=== PATIENT | female | born 1990 | race Caucasian/White ===

== ENCOUNTER 2016-12-16 19:48 | Inpatient (IN) | payer OTHER ==
[~2016-12-16] VITALS: Ht 162.6 cm; Wt 65.8 kg
[2016-12-16 21:00] VITALS: BP 147/96; PULSE 113; RESP 24; O2SAT 100
[2016-12-16] MEDS ORDERED: Senna-Docusate 8.6-50 mg Tablet PO PRN (21:10)
[2016-12-16] MEDS ORDERED: Acetaminophen IV 1,000 MG in IV Premix 1 EACH IV PRN (21:10)
[2016-12-16] MEDS ORDERED: Polyethylene Glycol (PEG) 17 Gm Powder PO PRN (21:10)
[2016-12-16] MEDS ORDERED: Alum-Mag Hydrox-Simeth 30 mL Suspension PO PRN (21:10)
[2016-12-16] MEDS ORDERED: Ondansetron 2 mg/mL 2 mL Inj IVPUSH PRN (21:10)
--- NOTE | 2016-12-16 21:21 | ABG ---
DateTimeAnalyzed 21:17:00 -_ pH ____7.369 - 7.350 7.450 pCO2 ___41.9__ -mmHg 35.0 45.0 pO2 231 -mmHg 69.0 116 HCO3- ___23.6__ -mmol/L 22.0 26.0 ABE ___-1.1__ -mmol/L -2.0 2.0 tHb ___11.6__ -g/dL O2Hb ___97.5__ -% COHb ____0.8__ -% MetHb ____1.2__ -% sO2 ___99.5__ -% FIO2 __100.0__ -% PEEP ____5.0__ -cmH2O Set_RR ___24.0__ -b/min Vt __480.0__ -L Drawn By AF - Date/Time Notified____ 21:20:00 -_ Spontaneous_RR ___24.0__ -b/min Oxygen Device 1 VENTILATOR - Notified By AF - B 761 -mmHg tO2 ___16.5__ -Vol% OrderingPhysicianInitials mf - Deric test _Positive -
--- NOTE | 2016-12-16 21:31 | PCM.HPMED ---
Subjective Date of Service December 16, 2016 Primary Provider: Admitting Physician: Fish Doe MD Primary Care Physician: Luis Attending Physician: Fish Doe MD Admit Status: Direct Admit (From [facility]), Full Admit, Critical Care Chief Complaint: Unresponsive History of Present Illness: Gabrielle Colunga is a 26 yo Heroine Addict with no medical problems who was intubated and transfer from [facility] after she was found unresponsive. She was found unresponsive in a vehicle by a friend. Friend reported finding a empty 1/5 of rum, pill cutter and a pipe in the car. Patient is reportedly depressed about the lose of custody of her baby to the state. She currently lives with he parents trying to get her life back together. She recently lost her job and her home. She is scheduled to go to rehab History of smoking heroine and alcohol problem. EMS reported finding patient with agonal breathing with pin point pupils. Respiratory rate was 4-6. EMS gave Narcan 2 mg intranasal with good response. Etomidate and succinylcholine also given then patient was intubated in the field. Also Versed and fentanyl iv given in ambulance enroute to hospital. Chest X ray showed ET tube in position and progression of right basilar infiltrates, possible aspiration test negative WBC 24.6 Hgb 13.1 plt 277 INR 0.9 Salicylate < 2.8 Acetaminophen < 2 Urine drug screen positive for benzodiazepine Na 146 K 3.5 BUN9 Cr 0.9 Glucose 180 Alcohol levels 168 AST 59 ALT [address] Harvey, [place] currently does not have ICU beds available. Review of Systems: Pertinent positives as noted in HPI. All other systems were reviewed and are negative Allergies Coded Allergies: No Known Allergies (Unverified , 12/16/16) Home Medications Data not available PMH Heroine abuse . Surgical History Unable to obtain Family History Unable to obtain Social History Hx Alcohol Use: Yes Hx Substance Use: Yes (smokes heroine) Smoking Status: Unknown if Ever Smoker Living Arrangement: with Family (recently moved to her parents house) Exam Vital Signs Vital Signs (First) Date Time Temp Pulse Resp B/P Pulse Ox O2 Delivery O2 Flow Rate FiO2 12/16/16 21:00 110 100 100 12/16/16 21:45 111/103 Exam General: Sedated on the ventilator Eyes: PERRLA, Scleral Anicteric Mouth: Mouth Normal, Mucous Membranes Moist/[place] Neck: Supple, no Thyromegaly, trachea central. Chest & Lungs: decreased breathe sounds at bases with crackles at right lung base Cardiovascular: Normal S1, Normal S2, No Murmurs/Rubs/Gallops, Regular Rate/ Rhythm, (No JVD, no peripheral edema) Pulses: Radial (present and equal), Dorsalis Pedi (present and equal) Abdomen: Soft, Non-tender, Non-distended, Normoactive bowel tones. Musculoskeletal: Right arm swelling (pitting) from hand up to just below shoulder, bruises noted on inner aspect of bicep area, elbow protruding due to tissue swelling Extremities: No edema, no cyanosis, no clubbing. Skin: No rashes. Warm and dry, no erythematous areas Neurological: Sedated on vent but moving all extremities Lymphatic: Lymph nodes Cervical and Axillary not palpable. Lab and Diagnostics Labs Laboratory Tests Test 12/16/16 21:25 White Blood Count 14.0th/mm3 (3.8-10.1) Red Blood Count 3.82mil/mm3 (3.90-5.20) Hemoglobin 11.5g/dL (12.0-15.6) Hematocrit 35.2% (35.0-46.0) Mean Corpuscular Volume 92.1fL (81-100) Mean Corpuscular Hemoglobin 30.1pg (27.0-35.0) Mean Corpuscular Hemoglobin Concent 32.7% (32.0-37.0) Red Cell Distribution Width 12.7% (12.3-15.4) Platelet Count 172bil/L (150-400) Neutrophils (%) (Auto) 86.5% (40-74) Lymphocytes (%) (Auto) 9.9% (14-46) Monocytes (%) (Auto) 2.6% (4-12) Eosinophils (%) (Auto) 0.6% (0-5) Basophils (%) (Auto) 0.2% (0-3) Sodium Level 142mEq/L (134-144) Potassium Level 4.5mEq/L (3.5-5.2) Chloride Level 105mEq/L (97-108) Carbon Dioxide Level 25mmol/L (18-29) Blood Urea Nitrogen 8mg/dL (6-20) Creatinine 0.59mg/dL (0.57-1.00) Estimat Glomerular Filtration Rate 175mL/min (>59) Glucose Level 96mg/dL (60-99) Calcium Level 7.6mg/dL (8.5-10.1) Magnesium Level 1.5mg/dL (1.6-2.6) Total Bilirubin 0.6mg/dL (0.0-1.2) Aspartate Amino Transf (AST/SGOT) 49U/L (0-50) Alanine Aminotransferase (ALT/SGPT) 32U/L (0-32) Alkaline Phosphatase 53U/L (25-150) Total Protein 5.6g/dL (6.4-8.4) Albumin 3.5g/dL (3.4-5.0) Hold Mcclain Top Tube Received (Received) Assessment & Plan Gabrielle Colunga is a 26 yo Heroine Addict with no medical problems who was intubated and transfer from [facility] after she was found unresponsive. 1. Acute Encephalopathy secondary to Overdose. Present on admission Strong evidence of Heroine Overdose with Alcohol toxicity as well based on the history reported. 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 Acute Respiratory Failure. Present on admission Due to inability to maintain airways due to Overdose. Patient has no prior Pulmonary problems - maintain on Ventilator overnight, follow ABG and change vent setting accordingly - Propofol and Fentanyl protocol for ventilation sedation - daily sedation vacation and extubation trials 3. Aspiration pneumonitis. Present on admission Likely the patient aspirated when she was unresponsive and Chest X ray confirm the presence of infiltrates - monitor with NG tube in place - initiate antibiotics if fever develops, this confirms pneumonia - patient seems to smoke heroine and may cause some lung injury 4. Right arm swelling due to possible compartment syndrome. Present on admission This finding was reported later by the nurse. Swelling seems to involve the hands up to just below the right shoulder - Dr Echeverria from Orthopedic consulted - X ray to rule out any fractures - Engle device for pressure monitoring Alcohol intoxication. Present on admission Suspect patient does not take alcohol on a daily basis - monitor for signs of withdrawal when extubated 5. Acute Leukocytosis. Present on admission Likely due to stress demargination. Possible early signs of infection - not meeting SIRS or Sepsis criteria. - Acetaminophen as needed for mild pain/fever/headache - Bowel regimen as needed - Antiemetic as needed Patient admitted under inpatient status with expected length of stay > 2 midnights for severity of present symptoms, complexities of treatment plan and risk for adverse event . VTE Prophylaxis: Sub-Q Heparin (Unfractionated) Resuscitation Status: CPR: Attempt Resuscitation Time spent 1 hour critical care time spend Fish Doe MD December 16, 2016 21:31
[2016-12-16 21:35] LABS: BASOPHILS % (AUTO) 0.2 % (0-3); EOSINOPHILS % (AUTO) 0.6 % (0-5); MONOCYTES % (AUTO) 2.6 % (4-12); Mean Corpuscular Hemoglobin 30.1 pg (27.0-35.0); Mean Corpuscular Volume 92.1 fL (81-100); NEUTROPHILS % (AUTO) 86.5 % (40-74); Platelet Count 172 bil/L (150-400)
[2016-12-16 21:45] VITALS: BP 111/103; O2SAT 96
[2016-12-16 21:57] LABS: Magnesium 1.5 mg/dL (1.6-2.6)
[2016-12-16] MEDS: 0.9% Sodium Chloride 1,000 ML IV SCH (22:01)
[2016-12-16] MEDS: fentaNYL 2,500 mCg/250 mL 2,500 MCG in IV Premix 1 EACH IV PRN (22:02)
[2016-12-16] MEDS: Propofol Inj 1,000,000 MCG in IV Premix 1 EACH IV SCH (22:06)
[2016-12-16] MEDS ORDERED: FLUO10CA20 PO (22:45)
[2016-12-16] MEDS ORDERED: suboxone (22:45)
[2016-12-16] MEDS ORDERED: LORazepam Inj 100 MG in 0.9% Sodium Chloride 50 ML IV PRN (23:25)
[2016-12-17] VITALS (13 sets, daily range): BP systolic 101–164; BP diastolic 56–94; PULSE 86–126; RESP 16–24; O2SAT 95–100
[2016-12-17] MEDS: Heparin 5,000 Unit/mL Inj SUBQ SCH ×4 (00:01→23:38)
[2016-12-17] MEDS: Chlorhexidine 0.12% 15 mL Oral Solution MT SCH ×7 (00:01→23:38)
[2016-12-17] MEDS ORDERED: Piperacillin-Tazo 3.375 Gm Inj 3.375 GM in Dextrose 5% Minibag Plus 50 ML IV ONE (00:20)
[2016-12-17 01:13] LABS: APPEARANCE,URINE CLEAR (CLEAR,HAZY); COLOR,URINE STRAW (YELLOW); OCCULT BLOOD,URINE TRACE (NEGATIVE); PH,URINE 5.5 (5.0-8.0); UROBILINOGEN,URINE NORMAL (NORMAL)
--- NOTE | 2016-12-17 02:23 | PCM.CONORT ---
Subjective Surgeon Admitting Provider:Fish Doe MD Attending Provider:Fish Doe MD Primary Care Physician:Nopmary Other Provider: Reason for Consultation: rule out compartment syndrome right forearm Allergy Allergies: Coded Allergies: No Known Allergies (Unverified , 12/16/16) Medications ([suboxone]) (Reported) Last Taken: UNKNOWN on Unknown Date & Time Fluoxetine (Fluoxetine) 10 Mg Capsule 10 MG PO DAILY (Reported) Last Taken: UNKNOWN on Unknown Date & Time History History of ENT Problems?: No HEENT History: Denies:: Abnormal Airway Cataracts Difficult Intubation Dysphagia Glaucoma Hearing Problem Sinus Problem TMJ Denture Type: None Teeth Condition: Within Normal Limits Hx of Heart Problems?: No Cardiovascular History: Denies:: AICD Abdominal Aortic Aneurism Atrial Fibrillation Cardiac Surgery Chest Pain Congestive Heart Failure Coronary Artery Disease Edema Heart Murmur Hypertension Irregular Heartbeat Pacemaker Peripheral Vascular Rheumatic Fever Thrombophlebitis Valvular Heart Disease Hx of Respiratory Problem?: No Respiratory History: Denies:: Asthma COPD Chest Surgery Cough Dyspnea Emphysema Hemoptysis Oxygen Administration Pneumonia Pulmonary Embolism Tuberculosis Use of C-PAP Machine Use of Inhalers / NEBS Hx Neurologic Problems?: No Neurological History: Denies:: Alzheimer's Disease CVA Dementia Dizziness Headaches Multiple Sclerosis Parkinson's Disease Peripheral Neuropathy Seizures TIA Hx of GI Problems?: No Gastrointestinal History: Denies:: Cirrhosis Diverticulitis Gall Bladder Disease Gastroesphageal Reflux Gastrointestinal Bleeding Heartburn Hepatitis Hiatal Hernia Liver Disease Rectal Bleeding Hx of Problems?: Yes Genitourinary History: Denies:: HX of Hemodialysis Kidney Stones Urinary Tract Infection HX of Peritoneal Dialysis: No Other Pertinent History: 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 Pressure Ulcers Hx Musculoskeletal Problems?: No Other History/Comment Gabrielle Aragon is a 26-year-old unknown hand dominant patient who presents to the hospital with a history of heroin addiction and was transferred from [facility] after she was found unresponsive in her vehicle with a pill cutter, bottle of rum and a pipe in her car. The patient was transferred intubated and unresponsive is unable to describe their pain or symptoms. This has been progressing over the past today after since earlier yesterday on 2016. The nurse reported that her forearm was swollen and an x-ray of her elbow was performed which showed no fracture. She is unable to report any issues with numbness, tingling, or weakness to the affected distal upper extremity. It is unknown whether the patient denies any fever, chills, nausea, vomiting, chest pain, shortness of breath, or calf tenderness. Work/hobbies/ sports include: Reportedly she was depressed and about to lose custody of her baby to this state. She recently lost her job and home and lives with her parents and was scheduled to go to rehabilitation Psycho Social History: Denies:: Anxiety Bipolar Disorder Hx Depression Suicide Attempt Hx Surgeries?: No Other History: Denies:: Cancer Endocrine Disease Hospitalization Thyroid Disease History Blood Transfusions: Positive for:: Accept Blood Products? Denies:: Blood Transfuse Reaction Blood Transfusions Hx Alcohol Use: YesHx Substance Use: Yes (smokes heroine) Smoking Status: Unknown if Ever Smoker Have You Smoked inLast 12 mo: YesApprox How Many Cigarettes/day: started 2 days ago per Mom Objective Exam Vital Signs & I/O Vital Sign- Last 8 Hours Date Time Temp Pulse Resp B/P Pulse Ox O2 Delivery O2 Flow Rate FiO2 12/17/16 00:20 124 164/92 100 50 12/16/16 21:45 108 111/103 96 50 12/16/16 21:00 110 100 100 12/16/16 21:00 37.2 113 24 147/96 100 Mechanical Ventilator 100 Lab & Micro Results Laboratory Tests Test 12/16/16 21:25 12/17/16 00:40 White Blood Count 14.0th/mm3 (3.8-10.1) Red Blood Count 3.82mil/mm3 (3.90-5.20) Hemoglobin 11.5g/dL (12.0-15.6) Hematocrit 35.2% (35.0-46.0) Mean Corpuscular Volume 92.1fL (81-100) Mean Corpuscular Hemoglobin 30.1pg (27.0-35.0) Mean Corpuscular Hemoglobin Concent 32.7% (32.0-37.0) Red Cell Distribution Width 12.7% (12.3-15.4) Platelet Count 172bil/L (150-400) Neutrophils (%) (Auto) 86.5% (40-74) Lymphocytes (%) (Auto) 9.9% (14-46) Monocytes (%) (Auto) 2.6% (4-12) Eosinophils (%) (Auto) 0.6% (0-5) Basophils (%) (Auto) 0.2% (0-3) Sodium Level 142mEq/L (134-144) Potassium Level 4.5mEq/L (3.5-5.2) Chloride Level 105mEq/L (97-108) Carbon Dioxide Level 25mmol/L (18-29) Blood Urea Nitrogen 8mg/dL (6-20) Creatinine 0.59mg/dL (0.57-1.00) Estimat Glomerular Filtration Rate 175mL/min (>59) Glucose Level 96mg/dL (60-99) Calcium Level 7.6mg/dL (8.5-10.1) Magnesium Level 1.5mg/dL (1.6-2.6) Total Bilirubin 0.6mg/dL (0.0-1.2) Aspartate Amino Transf (AST/SGOT) 49U/L (0-50) Alanine Aminotransferase (ALT/SGPT) 32U/L (0-32) Alkaline Phosphatase 53U/L (25-150) Total Protein 5.6g/dL (6.4-8.4) Albumin 3.5g/dL (3.4-5.0) Procalcitonin 0.16ng/mL (0.00-0.08) Hold Mcclain Top Tube Received (Received) Urine Color Straw (YELLOW) Urine Appearance Clear (CLEAR,HAZY) Urine pH 5.5 (5.0-8.0) Urine Specific [place] 1.020 (1.003-1.035) Urine Protein Negativemg/dL (NEG,TRACE) Urine Glucose (UA) Negativemg/dL (NEGATIVE) Urine Ketones 15mg/dL (NEGATIVE) Urine Occult Blood Trace (NEGATIVE) Urine Nitrite Negative (NEGATIVE) Urine Bilirubin Negative (NEGATIVE) Urine Urobilinogen Normalmg/dL (NORMAL) Urine Leukocyte Esterase Negative (NEGATIVE) Urine RBC 0-2/hpf (0-2) Urine WBC 0-5/hpf (0-5) Urine Epithelial Cells Occasional/hpf (NONE-MOD) Urine Crystals None seen (NONE SEEN) Urine Bacteria None/hpf (NONE-FEW) Urine Hyaline Casts None/lpf (NONE) Urine Granular Casts None seen (NONE SEEN) Urine Waxy Casts None seen (NONE SEEN) Urine Red Blood Cell Casts None seen (NONE SEEN) Urine White Blood Cell Casts None seen (NONE SEEN) Urine Mucus None seen (None Seen) Urine Trichomonas None seen (NONE SEEN) Urine Yeast None (NONE SEEN) Urine Culture Reflexed Not indicated Result Diagram: 12/16/16212412/16/162124 Review of Systems: Constitutional: Negative, except as otherwise mentioned in the history above. Ophthalmologic: Negative, except as otherwise mentioned in the history above. Cardiovascular: Negative, except as otherwise mentioned in the history above. Respiratory: Negative, except as otherwise mentioned in the history above. Gastrointestinal: Negative, except as otherwise mentioned in the history above. Genitourinary: Negative, except as otherwise mentioned in the history above. Musculoskeletal: Negative, except as otherwise mentioned in the history above. Neurological: Negative, except as otherwise mentioned in the history above. Psychiatric: Negative, except as otherwise mentioned in the history above. Hematologic/Lymphatic: Negative, except as otherwise mentioned in the history above. Allergic/Immunologic: Negative, except as otherwise mentioned in the history above. H&P Surgical Exam Exam Musculoskeletal: CONST: Intubated and sedated OCULAR: no conjunctivitis/icterus ENT: no deformities, scars or lesions CARDIAC: Pulse is regular. No cyanosis,clubbing RESP: regular,unlabored MSK: Unable to assess light touch to median, ulnar, radial, lateral antebrachial , axillary nerve distribution. Unable to assess AIN, PIN, u, r, ax motor. Unable to assess if C5-T1 intact, 2+ r pulse palpable bilaterally Right forearm - scars, -discoloration/temp, + swelling, compartment soft - atrophy or asymmetry, - cascade sign, no global ligamentous laxity, ROM right Ext-flex Resisted Strength/Pain Full elbow and wrist passive range of motion Additional Information Two-view x-rays of the right elbow demonstrate no acute fracture or dislocation , radiopaque substance noted likely IV H&P Preop Plan Impression Right forearm swelling, rule out compartment syndrome Problems: Risks & Benefits * We have reviewed the risks and benefits as well as the alternatives to surgery. All questions were answered to the patient's satisfaction and a counseling note to that effect. The patient has provided informed consent. * I have counseled the patient regarding the deleterious effects that smoking during the perioperative period can have upon wound healing, infection rates, and the overall rate of complications. Plan Nonweightbearing right upper extremity Recommend serial neurovascular exams every 4-6 hours Recommend extubation and immediate examination when medically indicated Recommend PRAFO to prevent heel ulcers and Achilles equinus contracture The right upper extremity was prepped with alcohol and iodine and the TwtBks compartment pressure device was used to assess multiple compartments of the right forearm including the: mobile wad:25mmHg dorsal compartment: 18 mmHg volar compartment: 20 mmHg thenar compartment 15 mmHg hyperthenar compartment 12 mmHg adductor pollicis compartment 12 mmHg, carpal tunnel compartment: 12 mmHg dorsal compartment: 11 mmHg Please keep extremity elevated Continue medical management per primary Please call with questions Norbert Echeverria MD December 17, 2016 02:23
[2016-12-17] MEDS: 0.9% Sodium Chloride 1,000 ML IV SCH (06:41)
[2016-12-17] MEDS: Propofol Inj 1,000,000 MCG in IV Premix 1 EACH IV SCH ×5 (06:42→23:39)
--- NOTE | 2016-12-17 07:35 | DRSVH ---
PROCEDURE: X-RAY RIGHT ELBOW, TWO VIEWS ([id number]) INDICATIONS: SWELLING TECHNIQUE: 3 views of the elbow were acquired. COMPARISON: None. FINDINGS: Bones: No fractures or dislocations. No suspicious bony lesions. Soft tissues: No elbow joint effusion. No suspicious soft tissue calcifications. IMPRESSION: No acute fracture. No osseous lesion. If clinical suspicion and/or symptoms persist, fur ther assessment with repeat plainfilms, or advanced imaging (e.g., CT, MRI, or bone scan) may be help ful for further assessment. Dictated by: Negar Polk M.D. on 12/17/2016 at 7:33 Approved by: Negar Polk M.D. on 12/17/2016 at 7:33
--- NOTE | 2016-12-17 07:37 | DRSVH ---
PROCEDURE: X-RAY CHEST ONE VIEW, PORTABLE ([id number]) INDICATIONS: vent patient TECHNIQUE: One view of the chest was acquired. COMPARISON: None. FINDINGS: Surgical changes and devices: NGT is present, which is looped within the gastric lumen. ETT is presen t, tip of which is 4 cm above the [place]isa. Lungs and pleura: No pleural effusions or pneumothorax. Moderate airspace opacity at the right lung base. Mediastinum: Mediastinal contours appear normal. Heart size is normal. Bones and chest wall: No suspicious bony lesions. Overlying soft tissues appear unremarkable. IMPRESSION: Right lung base pneumonia. Dictated by: Negar Polk M.D. on 12/17/2016 at 7:35 Approved by: Negar Polk M.D. on 12/17/2016 at 7:35
[2016-12-17] MEDS: Piperacillin-Tazo 3.375 Gm Inj 3.375 GM in Dextrose 5% Minibag Plus 50 ML IV SCH ×3 (08:20→23:38)
[2016-12-17] MEDS ORDERED: Magnesium Sulf 4 Gm/100 mL H2O 4 GM in IV Premix 1 EACH IV ONE (08:30)
[2016-12-17] MEDS ORDERED: D5 0.45% NaCl + KCl 20 mEq/L 1,000 ML IV SCH (12:35)
[2016-12-17] MEDS ORDERED: 0.9% Sodium Chloride 1,000 ML IV SCH (13:50)
[2016-12-17] MEDS: Dextrose 5% 0.9% NaCl 1,000 ML IV SCH (14:30)
--- NOTE | 2016-12-17 14:56 | CONS ---
[address] [address] CONSULTATION REPORT PATIENT: DEV LEE : 1990 MR#: [id number] ADMIT: 12/16/2016 JOB ID: [id number] DATE OF SERVICE: 12/17/2016 REQUESTING PHYSICIAN: Dr. Gipson. REASON FOR CONSULTATION: Ostensible heroin overdose with ventilatory failure. HISTORY OF PRESENT ILLNESS: The patient is a 26-year-old heroin addict, who was found unresponsive in a vehicle by a friend. There was an empty bottle of rum, a pill cutter, and a pipe in the car. Patient apparently depressed about loss of custody of her baby to the State. Does have a history of smoking heroin as well as alcohol use. EMS reports finding the patient with agonal breathing. Pinpoint pupils. Respiratory rate 4-6. Good response to Narcan 2 mg intranasally. Subsequently, intubated in the field with etomidate and succinylcholine. Given Versed and fentanyl IV in the ambulance en route. No other history available. REVIEW OF SYSTEMS: Mother states the patient has no other medical problems other than her drug abuse. Unable to obtain review of systems, allergies, and home medications. Apparently does not take any medications or have any allergies. OBJECTIVE: Temperature 36.6 with T-max being 39.4, pulse 88, respiratory rate 16, set at 16. Blood pressure 128/88. O2 sat on FiO2 40%, PEEP of 5 is 100%. General appearance: Sedated on the ventilator. Following the ventilator. Pupils about 2 mm. Nose and throat could not be examined. Chest is clear with good breath sounds bilaterally. Heart: Regular rhythm. Heart tones normal. Abdomen soft. Quiet. Extremities: No pretibial edema. Has a tattoo on her right forearm. Apparently, it has been there for years. Right arm seems somewhat swollen and warm. Evaluation for compartment syndrome was negative. Chest x-ray shows a right lower lobe infiltrate. LABORATORY: Shows a white count of 14,000, with 86 polymorphonuclears, 9 lymphs, 2 monos. Hemoglobin 11.5. Platelet count 172,000. Sodium 142, potassium 4.5, chloride 105, CO2 is 25, BUN 8, creatinine 0.59, glucose 96. Calcium 7.6, magnesium 1.5, repleted with 4 grams of magnesium sulfate intravenously. Total bilirubin 0.6, AST 49, ALT 32, alk phos 53, total protein 5.6, albumin 3.5. Procalcitonin somewhat elevated at 0.16. ASSESSMENT: 1. Overdose. Apparently overdosed on heroin and alcohol. She currently is sedated on a ventilator. Doing reasonably well. Arterial blood gases on tidal volume of 420, rate of 16, FiO2 of 40%, PEEP of 5, shows a pO2 231, pCO2 of 41, pH 7.37. Those gases were done on FiO2 of 100%. That currently has been decreased to 40%. Repeat gases on FiO2 of 50%, rate of 24, tidal volume of 420, shows a pO2 of 754, CO2 29, pO2 of 76. The rate was subsequently decreased to 16. O2 saturation continued to increase and therefore her FiO2 was decreased to 0.4 with sats running at 100%. 2. Aspiration pneumonia. On appropriate antibiotics. 3. Overdose. With chronic use of alcohol, I think thiamine should be added to her regimen. In addition, fluids might be changed from D5 half-normal with K to normal saline to avoid any problem with hyponatremia. Will add D5 to the normal saline as she has been hypoglycemic on one check with a sugar of 67 recently (an hour and half ago). Repeat check was 111 glucose. 4. Swollen right arm. Has been evaluated for compartment syndrome. May consider ultrasound or possibly even CT scan to make sure there is no evidence of DVT or soft tissue infection. Family states that the tattoo is quite old and I do not think that has much to do with the situation. PLAN: 1. Discontinue D5 half-normal plus potassium. 2. IV fluids consist of D5 normal saline at 70 an hour. 3. Thiamine IV 200 mg daily x3 days. 4. Consider ultrasound or possibly even CT of the right upper extremity. Will check with the primary team about this. Thank you so much, Dr. Gipson, for asking me to see this most unfortunate individual. Will follow her respiratory status closely along with you. Time spent in critical care 30 minutes.
[2016-12-17] MEDS: Thiamine Inj 200 MG in Dextrose 5% 50 ML IV SCH (15:15)
--- NOTE | 2016-12-17 17:52 | DRSVH ---
PROCEDURE: US VENOUS ARM DUPLEX UNILATERAL, RIGHT INDICATIONS: RUE swelling TECHNIQUE: Real-time imaging, as well as color and pulse Doppler interrogation, was performed of the right upper extremity deep veins from the inferior neck to the antecubital fossa. COMPARISON: None. FINDINGS: The internal jugular vein, visualized portions of the subclavian vein, axillary, and brach ial veins are free of intraluminal thrombus. Where physically possible, the veins are normally compr essible. Color and pulse Doppler demonstrate normal intraluminal flow, with expected phasicity and p ulsatility. Additional scanning of the cephalic and basilic veins of the superficial system demonstr ate normal compressibility, without thrombus. IMPRESSION: No evidence of right upper extremity DVT. Dictated by: Negar Polk M.D. on 12/17/2016 at 17:50 Approved by: Negar Polk M.D. on 12/17/2016 at 17:51
--- NOTE | 2016-12-17 19:23 | PCM.PNMED ---
Subjective Date of Service December 17, 2016 Subjective The patient is sedated on the ventilator. She appears quite comfortable and in no distress. Exam Vital Signs Vital Sign - Last Date Time Temp Pulse Resp B/P Pulse Ox O2 Delivery O2 Flow Rate FiO2 12/17/16 17:50 88 119/76 99 40 12/17/16 15:30 Ventilator 12/17/16 15:30 37.0 16 Intake and Output 12/16/16 12/16/16 12/17/16 Cumulative From/Thru 15:00 23:00 07:00 12/16/16 21:00 - 12/17/16 06:10 Intake Total 1330 ml 1330 ml Output Total 1150 ml 1150 ml Balance 180 ml 180 ml Intake IV Total 1330 ml 1330 ml Output Urine Total 1000 ml 1000 ml Gastric Drainage Total 150 ml 150 ml Exam General: The patient is sedated on the ventilator and in no distress. She appears comfortable. HEENT: Head is atraumatic and normocephalic. Eyes: Pupils are pinpoint. Extraocular muscles are unable to be tested. Sclera are white, anicteric. Subconjunctival mucosa is pink. Ears and nose are unremarkable. Oropharynx: There is an endotracheal tube in place. There are no mucosal lesions visible, there is no thrush visible, there is no pharyngitis visible. Neck: Is supple, there are no nodes, or masses or tenderness. Chest: Is significant for rales at the right base. The lungs are otherwise clear with no wheezes, rhonchi or rubs. Heart: Rate, rhythm is regular. There is no appreciable murmur, rub or gallop. Abdomen: Good bowel sounds are present. Abdomen is soft, nontender, no organomegaly or masses were appreciated. There is some tympany to percussion. Extremities: There is some edema of the right upper extremity, greater than the left upper extremity. There is no evidence of cellulitis. There is no significant ecchymosis. Neurologic: Patient is sedated on a ventilator and full neurological exam could not be performed. Psychiatric: Patients is sedated and shows no sign of agitation. Genital: Deferred Rectal: Deferred Lab and Diagnostics Result Diagram: 12/16/16212412/16/162124 Microbiology Name: GABRIELLE LEE Age/Sex: 26/F Attend Dr: Fish Doe MD Acct: [id number] Unit: [id number] Status: ADM IN Location: [facility] [id number] Re12/16/16 Disch: Specimen: [id number] Collected: 12/17/16 Status: RES Req#: [id number] Received: 12/17/16 Source: NOSE Sp Desc : Subm Dr: Fish Doe MD Ordered: ISABEL MRSA PCR Comments: Collected by Nurse/Unit? Y/N Y Comment: Use both nares with one swab Procedure Result Verified Site Microbiology ISABEL MRSA PCR Preliminary 05/07/17-0836 MRSA BY PCR POSITIVE REFERENCE INTERVAL NEGATIVE Organism 1 PRESUMPTIVE MRSA PCR Blood Cultures are pending. Sputum cultures are pending. Additional Diagnostics The right upper extremity was prepped with alcohol and iodine and the Piece of Cake compartment pressure device was used to assess multiple compartments of the right forearm including the: mobile wad:25mmHg dorsal compartment: 18 mmHg volar compartment: 20 mmHg thenar compartment 15 mmHg hyperthenar compartment 12 mmHg adductor pollicis compartment 12 mmHg, carpal tunnel compartment: 12 mmHg dorsal compartment: 11 mmHg Assessment & Plan Gabrielle Colunga is a 26 yo Heroine Addict with no medical problems who was intubated and transfer from [facility] after she was found unresponsive. 1. Acute Encephalopathy secondary to Overdose. Present on admission Strong evidence of Heroine Overdose with Alcohol toxicity as well based on the history reported. 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 Acute Respiratory Failure. Present on admission Due to inability to maintain airways due to Overdose. Patient has no prior Pulmonary problems - We will continue to maintain on Ventilator overnight, follow ABG and change vent setting accordingly. Dr. Dominic Kenyon and was consulted for ventilator management. - We will continue Propofol and Fentanyl protocol for ventilation sedation - We will continue daily sedation vacation and extubation trials 3. Aspiration pneumonitis. Present on admission Likely the patient aspirated when she was unresponsive and Chest X ray confirm the presence of infiltrates - We will monitor with NG tube in place - Zosyn was started in the emergency room and will continue. Due to the preliminary result on the MRSA screen, and evidence of aspiration pneumonitis, we will add vancomycin per pharmacy - The patient has a history of smoking heroine and this may have caused some lung injury. 4. Right arm swelling. Present on admission. This is active and persistent. - Swelling seems to involve the hands up to just below the right shoulder. I suspect this may be due to deep venous thrombosis or dependent edema from lying unconscious with possible poor venous circulation - Dr Echeverria from Orthopedic consulted and has found no evidence of compartment syndrome. Appreciate his consultation and input. - X ray did not reveal any fractures 5. Alcohol intoxication. Present on admission Suspect patient does not take alcohol on a daily basis - monitor for signs of withdrawal when extubated 6. Acute Leukocytosis. Present on admission Likely due to aspiration pneumonia - Acetaminophen as needed for mild pain/fever/headache - Bowel regimen as needed - Antiemetic as needed Disposition: Patient likely to be here several more days for evaluation and treatment of the above conditions. Dr. Dominic Kenyon and of the pulmonary service was consulted for ventilator management. Appreciate his input and expertise. . Pain Evaluation: Adequate Pain Control GI Prophylaxis: H2 chinyere VTE Prophylaxis: Sub-Q Heparin (Unfractionated) VTE Mechanical Devices: Intermittant Pneumatic CD Resuscitation Status: CPR: Attempt Resuscitation Time spent Time spent in the care of this critically ill patient was over 60 minutes, over half of which was involved in counseling" of care. Norbert Gipson MD December 17, 2016 19:23
[2016-12-17] MEDS ORDERED: Vancomycin Inj 1,250 MG in 0.9% Sodium Chloride 250 ML IV ONE (19:30)
[2016-12-17] MEDS: Vancomycin Dose per Pharmacist XX SCH (19:56)
[2016-12-17] MEDS: Famotidine Inj 20 MG in IV Premix 1 EACH IV SCH (19:56)
--- NOTE | 2016-12-17 21:17 | PCM.CONPHA ---
Subjective Date of Service: December 17, 2016 Vancomycin dosing Reason for Pharmacy Consult: Vancomycin Dosing Assessment/Plan Assessment/Plan Patient is a 26 y.o. female receiving vancomycin for aspiration pneumonia. Concurrent abx include: zosyn. WBC count is 14 and the patient is febrile. Patient is 63kg, 64 inches tall with a SCr of 0.59 mg/dL-- estimated CrCl of > 90 mL/min. Based on patient parameters vancomycin will be loaded with 1250mg and then dosed at 1000 mg q8h with a target trough of 15-20 mcg/mL. Trough will be drawn prior to the 4th dose on 12/18 @ 1930. Pharmacy will follow daily and adjust as appropriate. Thank you for the consult in the care of this patient. RWP Msasimo Barajas December 17, 2016 21:17
[2016-12-17] MEDS ORDERED: Acetaminophen 32.5 mg/mL 20 mL Liquid NGTUBE ONE (21:30)
[2016-12-17] MEDS: fentaNYL 2,500 mCg/250 mL 2,500 MCG in IV Premix 1 EACH IV PRN (22:00)
[2016-12-18] VITALS (9 sets, daily range): BP systolic 110–144; BP diastolic 58–97; PULSE 84–101; RESP 0–31; O2SAT 94–100
[2016-12-18] MEDS: Dextrose 5% 0.9% NaCl 1,000 ML IV SCH ×4 (00:49→22:00)
[2016-12-18] MEDS: Chlorhexidine 0.12% 15 mL Oral Solution MT SCH ×5 (03:13→19:46)
[2016-12-18] MEDS: Vancomycin Inj 1,000 MG in IV Premix 1 EACH IV SCH ×2 (03:13→12:29)
[2016-12-18 03:15] LABS: BASOPHILS % (AUTO) 0.1 % (0-3); MONOCYTES % (AUTO) 5.7 % (4-12); Mean Corpuscular Hemoglobin 29.6 pg (27.0-35.0); Mean Corpuscular Volume 91.8 fL (81-100); NEUTROPHILS % (AUTO) 76.8 % (40-74); Platelet Count 141 bil/L (150-400)
[2016-12-18 03:54] LABS: Magnesium 1.8 mg/dL (1.6-2.6); Phosphorus 3.4 mg/dL (2.5-4.9)
--- NOTE | 2016-12-18 04:23 | ABG ---
DateTimeAnalyzed 04:20:00 -_ pH ____7.404 - 7.350 7.450 pCO2 ___40.0__ -mmHg 35.0 45.0 pO2 ___81.9__ -mmHg 69.0 116 HCO3- ___24.5__ -mmol/L 22.0 26.0 ABE ____0.3__ -mmol/L -2.0 2.0 tHb ___10.5__ -g/dL O2Hb ___94.6__ -% COHb ____1.2__ -% MetHb ____1.2__ -% sO2 ___96.9__ -% FIO2 ___40.0__ -% PEEP ____5.0__ -cmH2O Set_RR ___16.0__ -b/min Vt __420.0__ -L Drawn By AF - Date/Time Notified____ 04:23:00 -_ Spontaneous_RR ___16.0__ -b/min Oxygen Device 1 VENTILATOR - Notified By AF - B 763 -mmHg tO2 ___14.0__ -Vol% Deric test _Positive -
[2016-12-18] MEDS: Propofol Inj 1,000,000 MCG in IV Premix 1 EACH IV SCH (05:42)
[2016-12-18] MEDS: Thiamine Inj 200 MG in Dextrose 5% 50 ML IV SCH (07:46)
[2016-12-18] MEDS: Famotidine Inj 20 MG in IV Premix 1 EACH IV SCH ×2 (07:46→19:45)
[2016-12-18] MEDS: Heparin 5,000 Unit/mL Inj SUBQ SCH ×2 (07:47→16:38)
[2016-12-18] MEDS: Piperacillin-Tazo 3.375 Gm Inj 3.375 GM in Dextrose 5% Minibag Plus 50 ML IV SCH ×2 (07:47→16:38)
[2016-12-18] MEDS: Vancomycin Dose per Pharmacist XX SCH (07:47)
[2016-12-18] MEDS ORDERED: Magnesium Sulf 4 Gm/100 mL H2O 4 GM in IV Premix 1 EACH IV ONE (08:25)
--- NOTE | 2016-12-18 08:40 | DRSVH ---
PROCEDURE: X-RAY CHEST ONE VIEW, PORTABLE ([id number]) INDICATIONS: aspiration pneumonia TECHNIQUE: One view of the chest was acquired. COMPARISON: [facility], CR, XR CHEST 1VW (PORTABLE), 12/17/2016, 1:27. FINDINGS: Surgical changes and devices: Enteric tube is seen with the tip projecting in the fundus of the stoma ch. There is an endotracheal tube with the tip approximately 5-6 cm above the louisa. Lungs and pleura: No pleural effusions or pneumothorax. Mild improvement in right perihilar patchy o pacities. There are persistent retrocardiac patchy opacities. Mediastinum: Mediastinal contours appear normal. Heart size is normal. Bones and chest wall: No suspicious bony lesions. Overlying soft tissues appear unremarkable. IMPRESSION: Mild improvement in right perihilar patchy opacities, otherwise unchanged examination sin ce yesterday. Dictated by: Ranjan Puckett M.D. on 12/18/2016 at 8:35 Approved by: Ranjan Puckett M.D. on 12/18/2016 at 8:38
--- NOTE | 2016-12-18 09:44 | PCM.PNORTH ---
Subjective Date of Service: December 18, 2016 Visit Information: Reason for Visit Overdose Surgery/Surgery Date Post-Op Day # Date of Admission: December 16, 2016 at 20:55 Hospital Day #3 Subjective Patient is sedated and intubated, [place] restraints are in place. Objective Exam Objective Patient is a 26-year-old female sedated and intubated. Posterior restraints are in place. Examination of right upper extremity reveals mild swelling compared to the left upper extremity throughout the arm. Soft tissue compartments are palpably soft. There is brisk capillary refill to nailbeds. Vital Signs and I/O Vital Sign - Last Date Time Temp Pulse Resp B/P Pulse Ox O2 Delivery O2 Flow Rate FiO2 12/18/16 08:30 38.2 88 16 110/58 100 Mechanical Ventilator 40 Intake and Output 12/17/16 12/17/16 12/18/16 Cumulative From/Thru 15:00 23:00 07:00 12/16/16 21:00 - 12/18/16 06:09 Intake Total 1785 ml 2327 ml 5442 ml Output Total 1000 ml 1075 ml 3225 ml Balance 785 ml 1252 ml 2217 ml Intake IV Total 1725 ml 2327 ml 5382 ml Tube Feeding 60 ml 60 ml Output Urine Total 850 ml 975 ml 2825 ml Gastric Drainage Total 150 ml 100 ml 400 ml Lab & Micro Results Laboratory Tests Test 12/17/16 21:45 12/18/16 02:55 12/18/16 09:26 Hold Mcclain Top Tube Received (Received) White Blood Count 11.0th/mm3 (3.8-10.1) Red Blood Count 3.78mil/mm3 (3.90-5.20) Hemoglobin 11.2g/dL (12.0-15.6) Hematocrit 34.7% (35.0-46.0) Mean Corpuscular Volume 91.8fL (81-100) Mean Corpuscular Hemoglobin 29.6pg (27.0-35.0) Mean Corpuscular Hemoglobin Concent 32.3% (32.0-37.0) Red Cell Distribution Width 12.7% (12.3-15.4) Platelet Count 141bil/L (150-400) Neutrophils (%) (Auto) 76.8% (40-74) Lymphocytes (%) (Auto) 15.1% (14-46) Monocytes (%) (Auto) 5.7% (4-12) Eosinophils (%) (Auto) 2.0% (0-5) Basophils (%) (Auto) 0.1% (0-3) Sodium Level 141mEq/L (134-144) Potassium Level 3.7mEq/L (3.5-5.2) Chloride Level 105mEq/L (97-108) Carbon Dioxide Level 24mmol/L (18-29) Blood Urea Nitrogen 7mg/dL (6-20) Creatinine 0.56mg/dL (0.57-1.00) Estimat Glomerular Filtration Rate 186mL/min (>59) Glucose Level 101mg/dL (60-99) Calcium Level 7.7mg/dL (8.5-10.1) Phosphorus Level 3.4mg/dL (2.5-4.9) Magnesium Level 1.8mg/dL (1.6-2.6) Total Bilirubin 1.0mg/dL (0.0-1.2) Aspartate Amino Transf (AST/SGOT) 28U/L (0-50) Alanine Aminotransferase (ALT/SGPT) 24U/L (0-32) Alkaline Phosphatase 54U/L (25-150) Total Protein 5.0g/dL (6.4-8.4) Albumin 3.0g/dL (3.4-5.0) Procalcitonin 0.43ng/mL (0.00-0.08) Microbiology 12/18/16 Blood Culture, Received Pending 12/17/16 Sputum Quality Screen, Received Pending Result Diagram: 12/18/16 0255 12/18/16 0255 Assessment & Plan Plan No signs of compartment syndrome Continue with elevation of extremities on pillows Orthopedic will be happy to reexamine the patient after she is extubated for more thorough examination of the extremity. VTE Prophylaxis: Sub-Q Heparin (Unfractionated) Resuscitation Status: CPR: Attempt Resuscitation LorainVeronica Weir PA-C December 18, 2016 09:44
[2016-12-18 09:52] LABS: APPEARANCE,URINE HAZY (CLEAR,HAZY); COLOR,URINE STRAW (YELLOW); OCCULT BLOOD,URINE NEGATIVE (NEGATIVE); UROBILINOGEN,URINE NORMAL (NORMAL)
--- NOTE | 2016-12-18 10:19 | PCM.PNMED ---
Subjective Date of Service December 18, 2016 Charisma Aragon is a 26 year old heroin IVDU with no medical problems who was intubated and transfer from [facility] after she was found unresponsive. Currently under treatment for acute encephalopathy, respiratory failure, presumed hypoxemic and hypercapnic, and aspiration pneumonia. Hospital day #3. Overnight: The patient had an elevated temperature of 38.5. Today: The patient is intubate and sedated and is not responsive to verbal or physical stimulus. ROS is not obtainable. Exam Vital Signs Vital Sign - Last Date Time Temp Pulse Resp B/P Pulse Ox O2 Delivery O2 Flow Rate FiO2 12/18/16 04:43 107 114/62 99 40 12/18/16 03:03 38.5 16 Mechanical Ventilator Intake and Output 12/17/16 12/17/16 12/18/16 Cumulative From/Thru 14:59 22:59 06:59 12/16/16 21:00 - 12/18/16 06:09 Intake Total 1785 ml 2327 ml 5442 ml Output Total 1000 ml 1075 ml 3225 ml Balance 785 ml 1252 ml 2217 ml Intake IV Total 1725 ml 2327 ml 5382 ml Tube Feeding 60 ml 60 ml Output Urine Total 850 ml 975 ml 2825 ml Gastric Drainage Total 150 ml 100 ml 400 ml Exam General: The patient is sedated on the ventilator and in no distress. She appears comfortable and sedated. HEENT: Head is atraumatic and normocephalic. Eyes: Pupils are pinpoint. Extraocular muscles are unable to be tested. Sclera are white, anicteric. Subconjunctival mucosa is pink. Ears and nose are unremarkable. Oropharynx: There is an endotracheal tube and NGT in place. There are no mucosal lesions visible, there is no thrush visible, there is no pharyngitis visible. Neck: Is supple, there are no nodes, or masses or tenderness. Chest: Is significant for rales at the right base. The lungs are otherwise clear with no wheezes, rhonchi or rubs. Heart: Rate, rhythm is regular. There is no appreciable murmur, rub or gallop. Abdomen: Good bowel sounds are present. Abdomen is soft, no obvious tenderness , no organomegaly or masses were appreciated. There is some tympany to percussion. No bruising or discoloration appreciated. Extremities: There is some edema of the right upper extremity, greater than the left upper extremity. There is no evidence of cellulitis. There is no significant ecchymosis. Neurologic: Patient is sedated on a ventilator and full neurological exam could not be performed. Psychiatric: Patients is sedated and shows no sign of agitation. : Ballesteros in place. IVs and Medications Medications Reviewed: Medications were reviewed in detail Lab and Diagnostics Result Diagram: 12/18/1625412/18/16254 Microbiology MRSA positive X-Rays, CTs and MRIs US VENOUS ARM DUPLEX UNILATERAL, RIGHT IMPRESSION: No evidence of right upper extremity DVT. Dictated by: Negar Polk M.D. on 12/17/2016 at 17:50 X-RAY CHEST ONE VIEW, PORTABLE IMPRESSION: Right lung base pneumonia. Dictated by: Negar Polk M.D. on 12/17/2016 at 7:35 Assessment & Plan Gabrielle Aragon is a 26 year old heroin IVDU with no medical problems who was intubated and transfer from [facility] after she was found unresponsive. Currently under treatment for respiratory failure, presumed hypoxemic and hypercapnic, and aspiration pneumonia. Hospital day #3. 1. Acute encephalopathy secondary to overdose. Present on admission. Active. Strong evidence of heroin overdose with alcohol toxicity as well based on the history reported. 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 Acute Respiratory Failure. Present on admission. Active. Due to inability to maintain airways due to overdose. Patient has no prior pulmonary problems - Currently on the ventilator with settings of FiO2 0.4 PEEP 5 RR 16 TV 420. The pulmonary service is consulted, appreciated time and expertise. - We will continue Propofol and Fentanyl protocol for ventilation sedation. - We will continue daily sedation vacation and extubation trials. - Per report of nursing the patient is awake and moves around when she is alone in the room. 3. Aspiration pneumonia. Present on admission. Active. Likely the patient aspirated when she was unresponsive and Chest X ray confirm the presence of infiltrates - Chest x ray appears largely unchanged this morning. Patient did have an elevated temperature of 38.5 however. Will reculture blood. - Zosyn and Vancomycin day 3, patient positive for MRSA on nasal swab - The patient has a history of smoking heroin and this may have caused some lung injury. - Dr. Galvan to be consulted for antibiotic management, appreciate time and expertise. 4. Right arm swelling. Present on admission. This is active and persistent. - Swelling seems to involve the hands up to just below the right shoulder. DVT ruled out. - Dr Echeverria from Orthopedic consulted and has found no evidence of compartment syndrome. Appreciate his consultation and input. - X ray did not reveal any fractures - We will keep right arm elevated and continue to monitor. 5. Alcohol intoxication. Present on admission Suspect patient does not take alcohol on a daily basis - monitor for signs of withdrawal when extubated - Consider Ativan PRN withdrawal symptoms 6. Elevated temperature, present on admission -Continuing to spike fevers, we will continue monitor. -Will reculture blood, urine and sputum. -No rash noted and physical exam, so doubt that this is secondary to drug reaction. - Acetaminophen as needed for mild pain/fever/headache - Bowel regimen as needed - Antiemetic as needed High risk medications: Fentanyl, Propofol. Disposition: Patient will likely be in the ICU for 1-2 more days as she is evaluated and treated for the above conditions. GI Prophylaxis: H2 chinyere VTE Prophylaxis: Sub-Q Heparin (Unfractionated) VTE Mechanical Devices: Intermittant Pneumatic CD Resuscitation Status: CPR: Attempt Resuscitation Attending Statement Patient was seen and examined with Dr. Hilliard. The patient's chart was reviewed and agree with the above note. Debora Hilliard DO December 18, 2016 07:29 Norbert Gipson MD December 19, 2016 08:03
--- NOTE | 2016-12-18 10:57 | PCM.PNMED ---
Subjective Date of Service December 18, 2016 Subjective PULMONARY/CRITICAL CARE PROGRESS NOTE Attending: dr. Brasher/Initial consulting physician: Dr. Gipson Overnight: No acute events; reports that she would dong down to rate 30s with cough/suction Today: Remains intubated and sedated; not responsive to stimuli at time of examination; other staff reports she is responsive with verbal and physical stimuli Vent: FiO2 0.4, P5, R16, Vt 420; PRVC Exam Vital Signs Vital Sign - Last Date Time Temp Pulse Resp B/P Pulse Ox O2 Delivery O2 Flow Rate FiO2 12/18/16 08:30 38.2 88 16 110/58 100 Mechanical Ventilator 40 Intake and Output 12/17/16 12/17/16 12/18/16 Cumulative From/Thru 15:00 23:00 07:00 12/16/16 21:00 - 12/18/16 06:09 Intake Total 1785 ml 2327 ml 5442 ml Output Total 1000 ml 1075 ml 3225 ml Balance 785 ml 1252 ml 2217 ml Intake IV Total 1725 ml 2327 ml 5382 ml Tube Feeding 60 ml 60 ml Output Urine Total 850 ml 975 ml 2825 ml Gastric Drainage Total 150 ml 100 ml 400 ml Exam General: No acute distress; remains intubated and sedated HEENT: Atraumatic; PERRL, no sclera icterus, no conjunctival hemorrhage; ETT/ OGT in place Neck: Soft, no IV access present; no palpable nodes or thyroid Cardiac: Tachycardic rate and regular rhythm at time of examination with rate approx 110; no murmurs appreciated Respiratory: Adequate air flow all valencia; no wheeze or rhonchi noted Abdomen: Soft, appears to be nontender; nondistended Extremities: RUE notably more swollen than left, but non-erythematous, no pain elicited with movement or palpation; RUE swelling extends from dorsum of hand to axilla Joints: BLUE/BLLE no joint tenderness, swelling or erythema noted Skin: Warm and dry; multiple tattoos noted across body that appear to be healed Neuro: Cannot assess secondary to sedation Psych: Cannot assess secondary to sedation Lab and Diagnostics Result Diagram: 12/18/165 12/18/16254 Microbiology MRSA positive X-Rays, CTs and MRIs US VENOUS ARM DUPLEX UNILATERAL, RIGHT IMPRESSION: No evidence of right upper extremity DVT. Dictated by: Negar Polk M.D. on 12/17/2016 at 17:50 X-RAY CHEST ONE VIEW, PORTABLE IMPRESSION: Right lung base pneumonia. Dictated by: Negar Polk M.D. on 12/17/2016 at 7:35 Additional Diagnostics The right upper extremity was prepped with alcohol and iodine and the Radha compartment pressure device was used to assess multiple compartments of the right forearm including the: mobile wad:25mmHg dorsal compartment: 18 mmHg volar compartment: 20 mmHg thenar compartment 15 mmHg hyperthenar compartment 12 mmHg adductor pollicis compartment 12 mmHg, carpal tunnel compartment: 12 mmHg dorsal compartment: 11 mmHg Assessment & Plan PULMONARY /CRITICAL CARE PROGRESS NOTE Attending: Dr. Brasher/Initial consulting physician: Dr Gipson Ms. Aragon is a 26 year old woman with a history of drug use, reported to be inhaled, that was initially found unresponsive in her vehicle, who presented to [facility] as a transfer from [place] for continued management of acute hypoxemic respiratory failure secondary to intentional EtOH, and other unknown substance use, in the setting of possible aspiration PNA. Hospital day 3 Ventilator day 3 Acute hypoxemic respiratory failure, present on admission. Ongoing - Intubated at [place]; presumably to secure airway - Treat underlying cause(s): Aspiration PNA, EtOH/drug effects and resultant respiratory depression - Vent: FiO2 0.4, PEEP5, R16, Vt 420 - Remains intubated and sedated: Plan to decrease sedation and complete breathing trials in hope to extubate TODAY - Speech eval post extubation Sepsis, acute, present on admission. Ongoing - On admit: T 39.4, P126, WBC 14.0 - Treat underlying cause: Suspected aspiration PNA, possible bacteremia - BCx + sputum + Ur legionella and strep Substance abuse, including reported heroin, unknown, and EtOH, with suspected intentional overdose, chronicity unknown, present on admission. Ongoing - Presenting sx suspicious for intentional overdose; reports of depression, custody battles, and unstable home life - UTox report from admit: positive benzos + EtOH 168 - Thiamine daily - Recommend TEAM PHYSICIAN consult when appropriate - Recommend psych consult when appropriate Suspected aspiration PNA, acute, present on admission. Under therapy - Aspiration possible secondary to EtOH/heroin/unknown drug use, or from intubation - febrile, Tm 38.8 - Abx per primary team: Zosyn and vanco MRSA colonization, chronicity unknown, present on admission. Under therapy - MRSA screen positive - Vanco per primary team Right arm swelling, liekly acute, present on admission. Ongoing with improvement - RUE US: No evidence DVT - XR R elbow: No evidence fracture - Ortho consulted: No evidence compartment syndrome, recs include elevation and adv imaging when stable DVT: hep q8h GI: H2B DIET: NPO PRN fever/pain/bowel/nausea High risk: fentanyl + propofol gtt Thank you for this consult, we will follow along at this time. Please do not hesitate to contact us with any questions or concerns. Patient is likely to be extubated later today. Due to her reported history of drug/EtOH, her baseline behaviour is uncertain. Consider sitter if needed. Total time critical care/pulmonary: 90 minutes GI Prophylaxis: H2 chinyere VTE Prophylaxis: Sub-Q Heparin (Unfractionated) VTE Mechanical Devices: Intermittant Pneumatic CD Resuscitation Status: CPR: Attempt Resuscitation Attending Statement I personally examined the patient and saw him later in the day along with Rosy Underwood DO December 18, 2016 10:57 Arsh Brasher MD December 18, 2016 16:04
--- NOTE | 2016-12-18 16:12 | PCM.PNMED ---
Subjective Date of Service December 18, 2016 Subjective 26 yo with h/o heroin use found with AMS at her parents home. Intubated. EtOH level 0.160 Exam Vital Signs Vital Sign - Last Date Time Temp Pulse Resp B/P Pulse Ox O2 Delivery O2 Flow Rate FiO2 12/18/16 12:30 37.4 98 13 129/73 99 Mechanical Ventilator 40 Intake and Output 12/17/16 12/17/16 12/18/16 Cumulative From/Thru 15:00 23:00 07:00 12/16/16 21:00 - 12/18/16 06:09 Intake Total 1785 ml 2327 ml 5442 ml Output Total 1000 ml 1075 ml 3225 ml Balance 785 ml 1252 ml 2217 ml Intake IV Total 1725 ml 2327 ml 5382 ml Tube Feeding 60 ml 60 ml Output Urine Total 850 ml 975 ml 2825 ml Gastric Drainage Total 150 ml 100 ml 400 ml Exam WDWN female orally intubated. Calm on sedation . Opens eyes briefly with loud voice. Follows some commands Lungs Minimal bibasilar crackles, NO wheezes CV RRR Abd Soft, Nl BTs Ext Diffusely warm and edematous RUE fingers to the level of her shoulder. No palpable cords or visible injection sites, fluctuence Lab and Diagnostics Result Diagram: 12/18/16 0255 12/18/16 0255 Microbiology MRSA positive X-Rays, CTs and MRIs US VENOUS ARM DUPLEX UNILATERAL, RIGHT IMPRESSION: No evidence of right upper extremity DVT. Dictated by: Negar Polk M.D. on 12/17/2016 at 17:50 X-RAY CHEST ONE VIEW, PORTABLE IMPRESSION: Right lung base pneumonia. Dictated by: Negar Polk M.D. on 12/17/2016 at 7:35 Additional Diagnostics The right upper extremity was prepped with alcohol and iodine and the eeden compartment pressure device was used to assess multiple compartments of the right forearm including the: mobile wad:25mmHg dorsal compartment: 18 mmHg volar compartment: 20 mmHg thenar compartment 15 mmHg hyperthenar compartment 12 mmHg adductor pollicis compartment 12 mmHg, carpal tunnel compartment: 12 mmHg dorsal compartment: 11 mmHg Assessment & Plan Acute respiratory failure due to heroin, EtOH and ??? Suspect she can be liberated from vent later todayt REC SBT off all sedation later today. Extubate as tolerates Psych and SW consults once extubated screen if not already done this admission Once extubated, PCCM will sign off GI Prophylaxis: H2 chinyere VTE Prophylaxis: Sub-Q Heparin (Unfractionated) VTE Mechanical Devices: Intermittant Pneumatic CD Resuscitation Status: CPR: Attempt Resuscitation Arsh Brasher MD December 18, 2016 16:12
[2016-12-18] MEDS ORDERED: Vancomycin Serum Trough XX ONE (19:30)
--- NOTE | 2016-12-18 21:00 | PCM.PHAPRO ---
Progress Date of Service: December 18, 2016 Vancomycin dosing VANCOMYCIN MANAGEMENT A\ Pt with ASP PNA vancomycin trough = 9.3 vanco goal 15-20 Scr decreased to 0.56 with DLS=658eg/min pt febrile in AM P\ Will increase Vancomycin 1500mg IV q8h first dose 2030 12/18 with next trough at 5\9 2000 before the 4th dose. Will continue to monitor Scr and adjust as needed. Hakeem Zaragoza [facility] December 18, 2016 21:00
[2016-12-18] MEDS: Vancomycin Inj 1,500 MG in 0.9% Sodium Chloride 500 ML IV SCH (21:13)
[2016-12-19] VITALS (10 sets, daily range): BP systolic 111–143; BP diastolic 66–93; PULSE 88–114; RESP 16–26; O2SAT 92–98
[2016-12-19] MEDS: Heparin 5,000 Unit/mL Inj SUBQ SCH ×3 (00:23→16:01)
[2016-12-19] MEDS: Piperacillin-Tazo 3.375 Gm Inj 3.375 GM in Dextrose 5% Minibag Plus 50 ML IV SCH ×3 (00:23→16:01)
[2016-12-19] MEDS: Chlorhexidine 0.12% 15 mL Oral Solution MT SCH ×6 (00:23→20:30)
[2016-12-19] MEDS: Dextrose 5% 0.9% NaCl 1,000 ML IV SCH ×3 (02:49→21:46)
[2016-12-19 03:22] LABS: BASOPHILS % (AUTO) 0.1 % (0-3); EOSINOPHILS % (AUTO) 2.2 % (0-5); Mean Corpuscular Hemoglobin 30.6 pg (27.0-35.0); Mean Corpuscular Volume 89.9 fL (81-100); NEUTROPHILS % (AUTO) 75.2 % (40-74); Platelet Count 149 bil/L (150-400)
[2016-12-19 04:04] LABS: Magnesium 1.7 mg/dL (1.6-2.6); Phosphorus 3.2 mg/dL (2.5-4.9)
[2016-12-19] MEDS: Vancomycin Inj 1,500 MG in 0.9% Sodium Chloride 500 ML IV SCH ×3 (04:33→21:48)
[2016-12-19] MEDS: Thiamine Inj 200 MG in Dextrose 5% 50 ML IV SCH (08:15)
[2016-12-19] MEDS: Vancomycin Dose per Pharmacist XX SCH (08:16)
[2016-12-19] MEDS: Famotidine Inj 20 MG in IV Premix 1 EACH IV SCH ×2 (08:16→21:48)
[2016-12-19] MEDS: Dexmedetomidine Inj 400 MCG in 0.9% Sodium Chloride 100 ML IV SCH (08:32)
--- NOTE | 2016-12-19 09:00 | DRSVH ---
PROCEDURE: X-RAY CHEST ONE VIEW, PORTABLE ([id number]) INDICATIONS: POST EXTUBATION (YESTERDAY) TECHNIQUE: One view of the chest was acquired. COMPARISON: [facility], CR, XR CHEST 1VW (PORTABLE), 12/18/2016, 4:38. FINDINGS: Surgical changes and devices: None. Lungs and pleura: No pleural effusions or pneumothorax. Bibasilar patch airspace opacities are pres ent.. Mediastinum: Mediastinal contours appear normal. Heart size is normal. Bones and chest wall: No suspicious bony lesions. Overlying soft tissues appear unremarkable. IMPRESSION: Bibasilar atelectasis versus aspiration or pneumonia. Correlate clinically. Dictated by: Kings Goldberg RRA Interpreted: Vanna Bullard MD on 12/19/2016 at 8:59 Transcribed by: ALANNA on 12/19/2016 at 8:59 Approved by: Vanna Bullard M.D. on 12/19/2016 at 17:00
--- NOTE | 2016-12-19 09:25 | PCM.PNORTH ---
Subjective Date of Service: December 19, 2016 Visit Information: Reason for Visit Overdose Surgery/Surgery Date Post-Op Day # Date of Admission: December 16, 2016 at 20:55 Hospital Day # Subjective Patient is nonresponsive to verbal cues at first. When I shook her gently, she groaned at me. She said she was not having any pain and then did not respond to any more of my questions. She would not move her hand or fingers with verbal cues. Nursing staff states she has not been complaining of any pain in the RUE Postop General: No Complaints, No Shortness of Breath Pain Management: PO Objective Exam Objective Patient in bed, somnolent, mostly unresponsive. Vital Signs and I/O Vital Sign - Last Date Time Temp Pulse Resp B/P Pulse Ox O2 Delivery O2 Flow Rate FiO2 12/19/16 07:48 114 12/19/16 04:29 25 130/84 98 OxyMask 6.00 12/19/16 00:16 36.8 12/18/16 12:30 40 Intake and Output 12/18/16 12/18/16 12/19/16 Cumulative From/Thru 15:00 23:00 07:00 12/16/16 21:00 - 12/19/16 06:06 Intake Total 2091 ml 2925 ml 79494 ml Output Total 2100 ml 3400 ml 8725 ml Balance -9 ml -475 ml 1733 ml Intake Oral 120 ml 480 ml 600 ml IV Total 1971 ml 2445 ml 9798 ml Tube Feeding 60 ml Output Urine Total 1900 ml 3400 ml 8125 ml Gastric Drainage Total 200 ml 600 ml Lab & Micro Results Laboratory Tests Test 12/18/16 09:26 12/18/16 18:58 12/19/16 03:10 Urine Color Straw (YELLOW) Urine Appearance Hazy (CLEAR,HAZY) Urine pH 6.0 (5.0-8.0) Urine Specific Maceo 1.005 (1.003-1.035) Urine Protein Negativemg/dL (NEG,TRACE) Urine Glucose (UA) Negativemg/dL (NEGATIVE) Urine Ketones Negativemg/dL (NEGATIVE) Urine Occult Blood Negative (NEGATIVE) Urine Nitrite Negative (NEGATIVE) Urine Bilirubin Negative (NEGATIVE) Urine Urobilinogen Normalmg/dL (NORMAL) Urine Leukocyte Esterase Negative (NEGATIVE) Urine RBC 0-2/hpf (0-2) Urine WBC 0-5/hpf (0-5) Urine Epithelial Cells Occasional/hpf (NONE-MOD) Urine Crystals None seen (NONE SEEN) Urine Bacteria None/hpf (NONE-FEW) Urine Hyaline Casts None/lpf (NONE) Urine Granular Casts None seen (NONE SEEN) Urine Waxy Casts None seen (NONE SEEN) Urine Red Blood Cell Casts None seen (NONE SEEN) Urine White Blood Cell Casts None seen (NONE SEEN) Urine Mucus None seen (None Seen) Urine Trichomonas None seen (NONE SEEN) Urine Yeast None (NONE SEEN) Urinalysis Comment None Urine Culture Reflexed Not indicated Vancomycin Level Trough 9.3mcg/mL White Blood Count 9.6th/mm3 (3.8-10.1) Red Blood Count 3.56mil/mm3 (3.90-5.20) Hemoglobin 10.9g/dL (12.0-15.6) Hematocrit 32.0% (35.0-46.0) Mean Corpuscular Volume 89.9fL (81-100) Mean Corpuscular Hemoglobin 30.6pg (27.0-35.0) Mean Corpuscular Hemoglobin Concent 34.1% (32.0-37.0) Red Cell Distribution Width 12.0% (12.3-15.4) Platelet Count 149bil/L (150-400) Neutrophils (%) (Auto) 75.2% (40-74) Lymphocytes (%) (Auto) 16.3% (14-46) Monocytes (%) (Auto) 6.0% (4-12) Eosinophils (%) (Auto) 2.2% (0-5) Basophils (%) (Auto) 0.1% (0-3) Sodium Level 143mEq/L (134-144) Potassium Level 3.7mEq/L (3.5-5.2) Chloride Level 105mEq/L (97-108) Carbon Dioxide Level 25mmol/L (18-29) Blood Urea Nitrogen 4mg/dL (6-20) Creatinine 0.47mg/dL (0.57-1.00) Estimat Glomerular Filtration Rate 228mL/min (>59) Glucose Level 101mg/dL (60-99) Calcium Level 8.2mg/dL (8.5-10.1) Phosphorus Level 3.2mg/dL (2.5-4.9) Magnesium Level 1.7mg/dL (1.6-2.6) Total Bilirubin 1.2mg/dL (0.0-1.2) Aspartate Amino Transf (AST/SGOT) 23U/L (0-50) Alanine Aminotransferase (ALT/SGPT) 22U/L (0-32) Alkaline Phosphatase 59U/L (25-150) Total Protein 5.3g/dL (6.4-8.4) Albumin 3.1g/dL (3.4-5.0) Triglycerides Level 93mg/dL (0-149) Hold Mcclain Top Tube Received (Received) Microbiology 12/18/16 Blood Culture - Preliminary, Resulted NO GROWTH AFTER 24 HOURS 12/17/16 Sputum Quality Screen - Final, Resulted 12/17/16 Sputum Culture, Resulted Pending 12/18/16 Streptococcus pneumoniae Ag Screen - Final, Complete Result Diagram: 12/19/16 0310 12/19/16 0310 General Appearance: No Acute Distress Extremities: Distal Pulses Palpable (with brisk capillary refill), No Compartment Syndrom Noted Postop Sensory Motor: Distal Motor Intact, Movement in Fingers SURGICAL WOUND : Wound Location/Description Skin is absent of erythema or swelling Assessment & Plan Impression No evidence of compartment syndrome Problems: Plan Patient does not appear to have compartment syndrome. If she had a cellulitis or infection of the tissue, it appears to have resolved at this point. Patient is either purposefully ignoring my questions or is somnolent. I recommend continuing Tylenol for pain control and reducing the amount of narcotic pain medication she has. Ortho will sign off at this point. We appreciate the consult and can reassess the patient in the future if needed. VTE Prophylaxis: Sub-Q Heparin (Unfractionated) Resuscitation Status: CPR: Attempt Resuscitation Krystle Forbes PA-C December 19, 2016 09:25
--- NOTE | 2016-12-19 11:22 | PCM.PNMED ---
Subjective Date of Service December 19, 2016 Subjective Gabrielle Aragon is a 26 year old heroin IVDU with no medical problems who was intubated and transfer from [facility] after she was found unresponsive. Currently under treatment for acute encephalopathy, respiratory failure, presumed hypoxemic and hypercapnic, and aspiration pneumonia. Hospital day #4. Overnight: She was extubated yesterday afternoon. The patient had some challenges with keeping her oxygen mask on. Today: The patient is alert and awake. She denies any suicidality. She states that she does not remember the events that lead up to her being hospitalized but she does believe it was an accidental overdose.She states she feels quite weak still and lack energy. She feels somewhat short of breath and has a mild cough. She denies any fevers, chills, nausea, or vomiting. The remainder of review of systems is negative except as noted above. Exam Vital Signs Vital Sign - Last Date Time Temp Pulse Resp B/P Pulse Ox O2 Delivery O2 Flow Rate FiO2 12/19/16 11:07 114 12/19/16 08:30 Supplement Oxygen 12/19/16 08:30 36.8 17 122/74 96 6.00 12/18/16 12:30 40 Intake and Output 12/18/16 12/18/16 12/19/16 Cumulative From/Thru 15:00 23:00 07:00 12/16/16 21:00 - 12/19/16 06:06 Intake Total 2091 ml 2925 ml 08249 ml Output Total 2100 ml 3400 ml 8725 ml Balance -9 ml -475 ml 1733 ml Intake Oral 120 ml 480 ml 600 ml IV Total 1971 ml 2445 ml 9798 ml Tube Feeding 60 ml Output Urine Total 1900 ml 3400 ml 8125 ml Gastric Drainage Total 200 ml 600 ml Exam General: The patient is awake and alert She is laying in a hospital bed in no acute distress. HEENT: Head is atraumatic and normocephalic. Eyes: Pupils are round and reactive to light and accommodating. Extraocular muscles are unable to be tested. Sclera are white, anicteric. Subconjunctival mucosa is pink. Ears and nose are unremarkable. Oropharynx: Moist mucosa. There are no mucosal lesions visible, there is no thrush visible, there is no pharyngitis visible. Neck: Is supple, there are no nodes, or masses or tenderness. Chest: Is significant for rales bilaterally. The lungs are otherwise clear with no wheezes, rhonchi or rubs. Heart: Rhythm is regular. There is no appreciable murmur, rub or gallop. Abdomen: Good bowel sounds are present. Abdomen is soft, nontender, no organomegaly or masses were appreciated. There is some tympany to percussion. No bruising or discoloration appreciated. Extremities: There is some edema of the right upper extremity, greater than the left upper extremity. There is no evidence of cellulitis. There is no significant ecchymosis. Neurologic: Moves all 4 extremities, normal muscle strength of bilateral upper extremities, cranial nerves grossly intact. Psychiatric: Denies any suicidal ideations. : Ballesteros in place. IVs and Medications Medications Reviewed: Medications were reviewed in detail Lab and Diagnostics Result Diagram: 12/19/1630912/19/16309 Microbiology MRSA positive X-Rays, CTs and MRIs US VENOUS ARM DUPLEX UNILATERAL, RIGHT IMPRESSION: No evidence of right upper extremity DVT. Dictated by: Negar Polk M.D. on 12/17/2016 at 17:50 X-RAY CHEST ONE VIEW, PORTABLE ([id number]) POST EXTUBATION (YESTERDAY) IMPRESSION: Bibasilar atelectasis versus aspiration or pneumonia. Correlate clinically. Dictated by: Kings Goldberg Martinez Interpreted: Vanna Bullard MD on 12/19/2016 at 8:59 Additional Diagnostics The right upper extremity was prepped with alcohol and iodine and the Radha compartment pressure device was used to assess multiple compartments of the right forearm including the: mobile wad:25mmHg dorsal compartment: 18 mmHg volar compartment: 20 mmHg thenar compartment 15 mmHg hyperthenar compartment 12 mmHg adductor pollicis compartment 12 mmHg, carpal tunnel compartment: 12 mmHg dorsal compartment: 11 mmHg Assessment & Plan Gabrielle Aragon is a 26 year old heroin user, who smokes heroin, with no medical problems who was intubated and transfer from [facility] after she was found unresponsive. Currently under treatment for respiratory failure, presumed hypoxemic and hypercapnic, and aspiration pneumonia. Hospital day #4. 1. Acute encephalopathy secondary to overdose. Present on admission. Resolved Strong evidence of heroin overdose with alcohol toxicity as well based on the history reported. - direct service worker evaluation - The patient denies any suicidality. 2. Acute Respiratory Failure. Present on admission. Improving Due to inability to maintain airways due to overdose. Patient has no prior pulmonary problems - Patient extubated 12/18 and is currently on 5 L NC - Incentive spirometry - Encouraged ambulation, physical therapy evaluation - Discussed with patient the importance of ambulating - CXR in AM 3. Aspiration pneumonia. Present on admission. Active. Likely the patient aspirated when she was unresponsive and Chest X ray confirm the presence of infiltrates - Zosyn and Vancomycin day 4, patient positive for MRSA on nasal swab - The patient has a history of smoking heroin and this may have caused some lung injury. 4. Right arm swelling. Present on admission. This is active and persistent. - Swelling seems to involve the hands up to just below the right shoulder. DVT ruled out. - Dr Echeverria from Orthopedic consulted and has found no evidence of compartment syndrome. Appreciate his consultation and input. - X ray did not reveal any fractures - We will keep right arm elevated and continue to monitor. 5. Alcohol intoxication. Present on admission Patient admitted to drinking a large amount of alcohol daily. She does not know the exact amount and she drinks whatever type of alcohol she can get her hands on. - Patient started on Precedex drip by ICU team for anxiety. Patient only requiring small amounts of medication, may discontinue soon. 6. Elevated temperature, present on admission -No fevers overnight. -Await blood cultures, urine and sputum. -No rash noted and physical exam, so doubt that this is secondary to drug reaction. - Acetaminophen as needed for mild pain/fever/headache - Bowel regimen as needed - Antiemetic as needed High risk medications: Fentanyl, Propofol. Disposition: Patient will likely be in the hospital for 1-2 more days as she is evaluated and treated for the above conditions. Pain Evaluation: Adequate Pain Control GI Prophylaxis: H2 chinyere VTE Prophylaxis: Sub-Q Heparin (Unfractionated) VTE Mechanical Devices: Intermittant Pneumatic CD Resuscitation Status: CPR: Attempt Resuscitation Attending Statement Patient was seen and examined with Dr. Hilliard. Chart was reviewed and agree with the above progress note. Debora Hilliard DO December 19, 2016 11:22 Norbert Gipson MD December 19, 2016 19:39
[2016-12-19] MEDS ORDERED: Vancomycin Serum Trough XX ONE (20:00)
[2016-12-19] MEDS: Ketorolac 15 mg/mL Inj IVPUSH PRN (21:47)
[2016-12-20] VITALS (8 sets, daily range): BP systolic 101–156; BP diastolic 56–106; PULSE 75–105; RESP 16–24; O2SAT 91–97
[2016-12-20] MEDS: Chlorhexidine 0.12% 15 mL Oral Solution MT SCH ×4 (00:30→12:14)
[2016-12-20] MEDS: Piperacillin-Tazo 3.375 Gm Inj 3.375 GM in Dextrose 5% Minibag Plus 50 ML IV SCH (00:39)
[2016-12-20] MEDS: Heparin 5,000 Unit/mL Inj SUBQ SCH ×3 (00:39→16:21)
[2016-12-20 02:59] LABS: BASOPHILS % (AUTO) 0.3 % (0-3); EOSINOPHILS % (AUTO) 3.2 % (0-5); MONOCYTES % (AUTO) 6.4 % (4-12); Mean Corpuscular Hemoglobin 29.9 pg (27.0-35.0); Mean Corpuscular Volume 90.3 fL (81-100); NEUTROPHILS % (AUTO) 74.5 % (40-74); Platelet Count 167 bil/L (150-400)
[2016-12-20] MEDS: Ketorolac 15 mg/mL Inj IVPUSH PRN ×4 (03:55→22:29)
[2016-12-20] MEDS: Dextrose 5% 0.9% NaCl 1,000 ML IV SCH ×3 (04:26→22:00)
[2016-12-20] MEDS: Vancomycin Inj 1,500 MG in 0.9% Sodium Chloride 500 ML IV SCH ×2 (04:28→12:29)
[2016-12-20] MEDS: Dexmedetomidine Inj 400 MCG in 0.9% Sodium Chloride 100 ML IV SCH (07:56)
[2016-12-20] MEDS: Vancomycin Dose per Pharmacist XX SCH (08:30)
[2016-12-20] MEDS: Famotidine Inj 20 MG in IV Premix 1 EACH IV SCH (08:54)
[2016-12-20] MEDS: Ampicillin-Sulbactam Inj 3,000 MG in 0.9% Sodium Chloride 100 ML IV SCH ×3 (09:00→22:30)
[2016-12-20] MEDS ORDERED: ALPRAZolam 0.5 mg Tablet PO ONE (13:30)
--- NOTE | 2016-12-20 16:48 | PCM.PNMED ---
Subjective Date of Service December 20, 2016 Subjective Gabrielle Aragon is a 26 year old heroin IVDU with no medical problems who was intubated and transfer from [facility] after she was found unresponsive. Currently under treatment for aspiration pneumonia. Hospital day #5. Overnight: No acute events overnight. Today: The patient denies any sore throat or chest pain. She notes a mild cough. She is very anxious about needles and needs a new IV and would like a bit of anxiolytic for the placement. She denies any fevers, chills, nausea, or vomiting. She denies any suicidal ideations. The remainder of review of systems is negative except as noted above. Exam Vital Signs Vital Sign - Last Date Time Temp Pulse Resp B/P Pulse Ox O2 Delivery O2 Flow Rate FiO2 12/20/16 16:23 37.1 80 16 143/100 93 Room Air 12/20/16 08:48 4.50 12/18/16 12:30 40 Intake and Output 12/19/16 12/19/16 12/20/16 Cumulative From/Thru 14:59 22:59 06:59 12/16/16 21:00 - 12/20/16 06:34 Intake Total 1536 ml 2946 ml 39070 ml Output Total 2100 ml 800 ml 42562 ml Balance -564 ml 2146 ml 3315 ml Intake Oral 880 ml 1800 ml 3280 ml IV Total 656 ml 1146 ml 77882 ml Tube Feeding 60 ml Output Urine Total 2100 ml 800 ml 13112 ml Gastric Drainage Total 600 ml # Voids 1 1 Exam General: The patient is awake and alert She is sitting up in a hospital bed in no acute distress. HEENT: Head is atraumatic and normocephalic. Eyes: Pupils are round and reactive to light and accommodating. Extraocular muscles are unable to be tested. Sclera are white, anicteric. Subconjunctival mucosa is pink. Ears and nose are unremarkable. Oropharynx: Moist mucosa. There are no mucosal lesions visible, there is no thrush visible, there is no pharyngitis visible. Neck: Is supple, there are no nodes, or masses or tenderness. Chest: Is significant for rales bilaterally that are improved from yesterday. The lungs are otherwise clear with no wheezes, rhonchi or rubs. Heart: Rhythm is regular. There is no appreciable murmur, rub or gallop. Abdomen: Good bowel sounds are present. Abdomen is soft, nontender, no organomegaly or masses were appreciated. There is some tympany to percussion. No bruising or discoloration appreciated. Extremities: There is some edema of the right upper extremity, which has improved. There is no evidence of cellulitis. There is no significant ecchymosis. Neurologic: Moves all 4 extremities, normal muscle strength of bilateral upper extremities, cranial nerves grossly intact. Psychiatric: Denies any suicidal ideations. Appropriate mood and affect. : differed. Ballesteros absent. IVs and Medications Medications Reviewed: Medications were reviewed in detail Lab and Diagnostics Result Diagram: 12/20/1624412/20/16 024 Microbiology MRSA positive X-Rays, CTs and MRIs US VENOUS ARM DUPLEX UNILATERAL, RIGHT IMPRESSION: No evidence of right upper extremity DVT. Dictated by: Negar Polk M.D. on 12/17/2016 at 17:50 X-RAY CHEST ONE VIEW, PORTABLE ([id number]) POST EXTUBATION (YESTERDAY) IMPRESSION: Bibasilar atelectasis versus aspiration or pneumonia. Correlate clinically. Dictated by: Kings Goldberg RRA Interpreted: Vanna Bullard MD on 12/19/2016 at 8:59 Additional Diagnostics The right upper extremity was prepped with alcohol and iodine and the Yushino compartment pressure device was used to assess multiple compartments of the right forearm including the: mobile wad:25mmHg dorsal compartment: 18 mmHg volar compartment: 20 mmHg thenar compartment 15 mmHg hyperthenar compartment 12 mmHg adductor pollicis compartment 12 mmHg, carpal tunnel compartment: 12 mmHg dorsal compartment: 11 mmHg Assessment & Plan Gabrielle Aragon is a 26 year old heroin user, who smokes heroin, with no medical problems who was intubated and transfer from [facility] after she was found unresponsive. Currently under treatment for aspiration pneumonia. Hospital day #5. 1. Aspiration pneumonia. Present on admission. Active. Likely the patient aspirated when she was unresponsive and Chest X ray confirm the presence of infiltrates - Zosyn and Vancomycin x4 days, patient positive for MRSA on nasal swab - Sputum growing group B strep. Likely MRSA represents colonization rather than MRSA pneumonia. Antibiotics narrowed to Unasyn. Antibiotic day 5 overall. - The patient has a history of smoking heroin and this may have caused some lung injury. 2. Acute encephalopathy secondary to overdose. Present on admission. Resolved Strong evidence of heroin overdose with alcohol toxicity as well based on the history reported. - social worker school evaluation - The patient denies any suicidality. Patient states that she is simply an addict and will taken a drug available to her. 3. Acute Respiratory Failure. Present on admission. Improving Due to inability to maintain airways due to overdose. Patient has no prior pulmonary problems - Patient extubated 12/18 and is currently on room air unless the patient is laying down - Incentive spirometry - Encouraged ambulation, physical therapy evaluation - Discussed with patient the importance of ambulating 4. Right arm swelling. Present on admission. This is active. However, much improved. - Swelling seems to involve the hands up to just below the right shoulder. DVT ruled out. - Dr Echeverria from Orthopedic consulted and has found no evidence of compartment syndrome. Appreciate his consultation and input. - X ray did not reveal any fractures - We will keep right arm elevated and continue to monitor. 5. Alcohol intoxication. Present on admission Patient admitted to drinking a large amount of alcohol daily. She does not know the exact amount and she drinks whatever type of alcohol she can get her hands on. - Precedex stopped as the patient was not requiring it. No signs of withdrawal noted since yesterday. - Acetaminophen as needed for mild pain/fever/headache - Bowel regimen as needed - Antiemetic as needed Disposition: Patient will likely be discharged tomorrow on PO antibiotics. Pain Evaluation: Adequate Pain Control GI Prophylaxis: H2 chinyere VTE Prophylaxis: Sub-Q Heparin (Unfractionated) VTE Mechanical Devices: Intermittant Pneumatic CD Resuscitation Status: CPR: Attempt Resuscitation Attending Statement Patient was seen and examined with Dr. Hilliard. Chart was reviewed and agree with the above progress note. Debora Hilliard DO December 20, 2016 16:37 Norbert Gipson MD December 20, 2016 18:34
[2016-12-20] MEDS ORDERED: 0.9% Sodium Chloride 250 ML ONE (22:07)
[2016-12-21] MEDS: Vancomycin Inj 1,500 MG in 0.9% Sodium Chloride 500 ML IV SCH (01:40)
[2016-12-21] MEDS: Heparin 5,000 Unit/mL Inj SUBQ SCH ×2 (01:42→08:35)
[2016-12-21] MEDS: Ampicillin-Sulbactam Inj 3,000 MG in 0.9% Sodium Chloride 100 ML IV SCH ×2 (04:08→08:35)
[2016-12-21 04:17] VITALS: BP 157/103; PULSE 78; RESP 16; O2SAT 95
[2016-12-21] MEDS: Ketorolac 15 mg/mL Inj IVPUSH PRN ×2 (04:29→11:29)
[2016-12-21 06:56] LABS: BASOPHILS % (AUTO) 0.3 % (0-3); EOSINOPHILS % (AUTO) 3.4 % (0-5); MONOCYTES % (AUTO) 10.2 % (4-12); Mean Corpuscular Hemoglobin 30.5 pg (27.0-35.0); Mean Corpuscular Volume 88.9 fL (81-100); NEUTROPHILS % (AUTO) 69.5 % (40-74); Platelet Count 185 bil/L (150-400)
--- NOTE | 2016-12-21 08:28 | DRSVH ---
PROCEDURE: X-RAY CHEST, TWO VIEWS ([id number]) INDICATIONS: Follow up for aspiration pneumonia TECHNIQUE: 2 views of the chest were acquired. COMPARISON: [facility], CR, XR CHEST 1VW (PORTABLE), 12/19/2016, 5:18. [facility], CR, XR CHEST 1VW (PORTABLE), 12/18/2016, 4:38. FINDINGS: Surgical changes and devices: None. Lungs and pleura: Slight decreased but persistent mid/basilar patchy airspace opacities present. No pneumothorax. Mediastinum: Mediastinal contours are normal. Heart size is normal. Bones and chest wall: No suspicious bony abnormalities. Soft tissues appear unremarkable. IMPRESSION: Slight decrease but persistent bilateral pulmonary opacities suggesting resolving pneumon ia or aspiration. Dictated by: Kings ARNDT Interpreted: Ignacio Novak MD on 12/21/2016 at 8:26 Transcribed by: DEVONTE on 12/21/2016 at 8:28 Approved by: Giles Novak M.D. on 12/21/2016 at 10:51
[2016-12-21 10:10] VITALS: BP 137/91; PULSE 91; RESP 16
[2016-12-21] MEDS ORDERED: Vancomycin Serum Trough XX ONE (12:00)
--- NOTE | 2016-12-21 13:47 | PCM.DIMED ---
Discharge Instructions Date of Service December 21, 2016 Dates of Hospitalization December 16, 2016 at 20:55 Discharge Diagnosis Discharge Diagnosis resp failure 2' aspiration while intoxicated with ETOH Diet No restrictions Patient Instructions stop alcohol and other illicit substances Follow-up plan pt directed to drug and alcohol counseling/inpatient rehab Follow-up with PCP in: 1 week Brayan Monk MD December 21, 2016 13:47
--- NOTE | 2016-12-21 18:34 | PCM.DC.MED ---
Discharge Summary Date of Service December 21, 2016 Dates of Hospitalization Date of Hospital Admission December 16, 2016 at 20:55 Date of Discharge: December 21, 2016 Providers: Admitting Physician: Fish Doe MD Primary Care Physician: Nopmary Attending Physician: Fish Doe MD Diagnosis at Time of Discharge Diagnosis at Time of Discharge resp failure 2' aspiration while intoxicated with ETOH Consultations Damian senior business architect Procedures XRay, CTs & MRIs US VENOUS ARM DUPLEX UNILATERAL, RIGHT IMPRESSION: No evidence of right upper extremity DVT. Dictated by: Negar Polk M.D. on 12/17/2016 at 17:50 X-RAY CHEST ONE VIEW, PORTABLE ([id number]) POST EXTUBATION (YESTERDAY) IMPRESSION: Bibasilar atelectasis versus aspiration or pneumonia. Correlate clinically. Dictated by: Kings Goldberg RRA Interpreted: Vanna Bullard MD on 12/19/2016 at 8:59 Invasive Procedures Intubation in the field Other Diagnostics The right upper extremity was prepped with alcohol and iodine and the Socii compartment pressure device was used to assess multiple compartments of the right forearm including the: mobile wad:25mmHg dorsal compartment: 18 mmHg volar compartment: 20 mmHg thenar compartment 15 mmHg hyperthenar compartment 12 mmHg adductor pollicis compartment 12 mmHg, carpal tunnel compartment: 12 mmHg dorsal compartment: 11 mmHg Brief History 26-year-old heroin addict, who was found unresponsive in a vehicle by a friend. There was an empty bottle of rum, a pill cutter, and a pipe in the car. Patient apparently depressed about loss of custody of her baby to the State. Hospital Course 26 year old female admitted 12/16 heroin user, who smokes heroin, with no medical problems who was intubated and transfer from [facility] after she was found unresponsive. Currently under treatment for aspiration pneumonia. 12/21 when I met the patient she was pacing the room to room air not having any symptoms. She was trying to talk me in 2 prescribing narcotics for her pain. She left me the impression that she thought she had never overdosed with narcotics so therefore those would be okay but that alcohol was her problem. In the same breath she is talking about going to drug and alcohol rehabilitation. She thinks that she just wants home before she goes to deal with the pain that she is having at this point in time. While I was debating prescribing this the patient became anxious and did not want to wait to be discharged and threatened to leave AGAINST MEDICAL ADVICE. Instead I discharged her with no medications. I did not continue treatment for pneumonia as she has had a 5 day course of IV antibiotics and she is on room air. Anemia, hypokalemia, hypernatremia has not on discharge but not treated. Given this patient's conduct I have no illusion that she will follow up or take any medications reliably other than narcotics that I would prescribe for her. I do not have high hopes for her ongoing sobriety. 1. Aspiration pneumonia. Present on admission. Active. Doubt a 5 day course of treatment, is asymptomatic on discharge no medications on discharge. Likely the patient aspirated when she was unresponsive and Chest X ray confirm the presence of infiltrates - Zosyn and Vancomycin x4 days, patient positive for MRSA on nasal swab - Sputum growing group B strep. Likely MRSA represents colonization rather than MRSA pneumonia. Antibiotics narrowed to Unasyn. Antibiotic day 5 overall. - The patient has a history of smoking heroin and this may have caused some lung injury. 2. Acute encephalopathy secondary to overdose. Present on admission. Resolved. Patient is ambulatory and perfectly lucid when I meet her 12/21 Strong evidence of heroin overdose with alcohol toxicity as well based on the history reported. - derrick worker evaluation - The patient denies any suicidality. Patient states that she is simply an addict and will taken a drug available to her. 3. Acute Respiratory Failure. Present on admission. Improving. Totally resolved she is on room air without complaints of dyspnea on date of discharge . Due to inability to maintain airways due to overdose. Patient has no prior pulmonary problems - Patient extubated 12/18 and is currently on room air unless the patient is laying down - Incentive spirometry - Encouraged ambulation, physical therapy evaluation - Discussed with patient the importance of ambulating 4. Right arm swelling. Present on admission. This is active. However, much improved. - Swelling seems to involve the hands up to just below the right shoulder. DVT ruled out. - Dr Echeverria from Orthopedic consulted and has found no evidence of compartment syndrome. Appreciate his consultation and input. - X ray did not reveal any fractures - We will keep right arm elevated and continue to monitor. 5. Alcohol intoxication. Present on admission-no signs of withdrawal on date of discharge 12/21 Patient admitted to drinking a large amount of alcohol daily. She does not know the exact amount and she drinks whatever type of alcohol she can get her hands on. - Precedex stopped as the patient was not requiring it. No signs of withdrawal noted since yesterday. - Acetaminophen as needed for mild pain/fever/headache - Bowel regimen as needed - Antiemetic as needed Disposition: Patient will likely be discharged tomorrow on PO antibiotics. Exam Vital Signs (Last) Date Time Temp Pulse Resp B/P Pulse Ox O2 Delivery O2 Flow Rate FiO2 12/21/16 10:10 36.8 91 16 137/91 Room Air 12/21/16 04:17 95 12/20/16 08:48 4.50 12/18/16 12:30 40 Exam Gen.- A+ O 3 no apparent distress. Ambulating in room Eyes- open conjunctiva clear, pupils equal nonicteric ENT- ears normal, nose normal, hearing intact Neck- supple/trach midline CVS- normal rate Lungs- regular nonlabored GI- NABS/NT soft Musc- moving 4 no obvious deformity Neuro- cranial nerves II through XII intact to gross examination, nonfocal Skin- warm and dry, no rashes/lesions/wounds noted Psych- pleasant and appropriate, trying to manipulate me into prescribing narcotics If you hours later reportedly very anxious pacing the room, so anxious pacing the room to be discharged and forgot the even request for narcotics at time of discharge or simply given up. Test 12/17/16 03:55 12/18/16 02:55 12/18/16 09:15 12/18/16 09:26 Total Creatine Kinase 168U/L (21-215) Procalcitonin 0.43ng/mL (0.00-0.08) Urine Legionella pneumophilia Ag Negative (Negative) Urine Color Straw (YELLOW) Urine Appearance Hazy (CLEAR,HAZY) Urine pH 6.0 (5.0-8.0) Urine Specific [place] 1.005 (1.003-1.035) Urine Protein Negativemg/dL (NEG,TRACE) Urine Glucose (UA) Negativemg/dL (NEGATIVE) Urine Ketones Negativemg/dL (NEGATIVE) Urine Occult Blood Negative (NEGATIVE) Urine Nitrite Negative (NEGATIVE) Urine Bilirubin Negative (NEGATIVE) Urine Urobilinogen Normalmg/dL (NORMAL) Urine Leukocyte Esterase Negative (NEGATIVE) Urine RBC 0-2/hpf (0-2) Urine WBC 0-5/hpf (0-5) Urine Epithelial Cells Occasional/hpf (NONE-MOD) Urine Crystals None seen (NONE SEEN) Urine Bacteria None/hpf (NONE-FEW) Urine Hyaline Casts None/lpf (NONE) Urine Granular Casts None seen (NONE SEEN) Urine Waxy Casts None seen (NONE SEEN) Urine Red Blood Cell Casts None seen (NONE SEEN) Urine White Blood Cell Casts None seen (NONE SEEN) Urine Mucus None seen (None Seen) Urine Trichomonas None seen (NONE SEEN) Urine Yeast None (NONE SEEN) Urinalysis Comment None Urine Culture Reflexed Not indicated Test 12/19/16 03:10 12/19/16 19:56 12/21/16 06:20 Phosphorus Level 3.2mg/dL (2.5-4.9) Magnesium Level 1.7mg/dL (1.6-2.6) Triglycerides Level 93mg/dL (0-149) Hold Mcclain Top Tube Received (Received) Vancomycin Level Trough 16.3mcg/mL White Blood Count 7.9th/mm3 (3.8-10.1) Red Blood Count 3.25mil/mm3 (3.90-5.20) Hemoglobin 9.9g/dL (12.0-15.6) Hematocrit 28.9% (35.0-46.0) Mean Corpuscular Volume 88.9fL (81-100) Mean Corpuscular Hemoglobin 30.5pg (27.0-35.0) Mean Corpuscular Hemoglobin Concent 34.3% (32.0-37.0) Red Cell Distribution Width 11.8% (12.3-15.4) Platelet Count 185bil/L (150-400) Neutrophils (%) (Auto) 69.5% (40-74) Lymphocytes (%) (Auto) 16.1% (14-46) Monocytes (%) (Auto) 10.2% (4-12) Eosinophils (%) (Auto) 3.4% (0-5) Basophils (%) (Auto) 0.3% (0-3) Sodium Level 146mEq/L (134-144) Potassium Level 3.3mEq/L (3.5-5.2) Chloride Level 106mEq/L (97-108) Carbon Dioxide Level 26mmol/L (18-29) Blood Urea Nitrogen 5mg/dL (6-20) Creatinine 0.58mg/dL (0.57-1.00) Estimat Glomerular Filtration Rate 179mL/min (>59) Glucose Level 109mg/dL (60-99) Calcium Level 8.7mg/dL (8.5-10.1) Total Bilirubin 0.6mg/dL (0.0-1.2) Aspartate Amino Transf (AST/SGOT) 47U/L (0-50) Alanine Aminotransferase (ALT/SGPT) 43U/L (0-32) Alkaline Phosphatase 59U/L (25-150) Total Protein 5.8g/dL (6.4-8.4) Albumin 3.4g/dL (3.4-5.0) Microbiology Results MRSA positive Blood cultures were negative Discharge Medications Discharge Medications Fluoxetine (Fluoxetine) 10 Mg Capsule 10 MG PO DAILY (Reported) Miscellaneous Medications ([suboxone]) (Reported) Followup Plan Disposition: Patient being discharged home she claims that she is going to be going for drug and alcohol rehabilitation given her conduct and behavior I think that is highly unlikely. Follow-up plan pt directed to drug and alcohol counseling/inpatient rehab Discharge Diet: No restrictions Patient Instructions stop alcohol and other illicit substances Follow-up with PCP in: 1 week Time spent 35 minutes Attending Statement Patient was trying to be prescribed oral opiates at time of discharge. This became very anxious and could not wait to be discharged fast enough. Really seems like she has little to no insight into her disease process I have little hope for ongoing sobriety despite statements that she was ready to go to inpatient rehabilitation. Brayan Monk MD December 21, 2016 18:34
== END 2016-12-21 14:50 | disposition home or self-care (01) | DRG 917 ==
LOC: CCU 20:55 → PCC 12-19 07:30 → MOC 12-20 20:57
PROVIDERS: ADMIT Hospitalist; ATTEND Hospitalist
PROC: 5A1945Z Respiratory Ventilation, 24-96 Consecutive Hours (ICD-10-PCS; principal; 2016-12-16)
PROC: 4A033B1 Measurement of Arterial Pressure, Peripheral, Percutaneous Approach (ICD-10-PCS; 2016-12-16)
DX: T51.91XA Toxic effect of unspecified alcohol, accidental (unintentional), initial encounter (principal); G92 Toxic encephalopathy; J96.00 Acute respiratory failure, unspecified whether with hypoxia or hypercapnia; J69.0 Pneumonitis due to inhalation of food and vomit; F11.10 Opioid abuse, uncomplicated; Y92.009 Unspecified place in unspecified non-institutional (private) residence as the place of occurrence of the external cause